=== PATIENT | female | born 1970 | race Caucasian/White ===

== ENCOUNTER → 2016-10-30 | Outpatient (CLI) | payer BC ==
--- NOTE | 2016-10-30 08:53 | REPMRS ---
Patient History The patient states she had a clinical breast exam in 11/03 Family history of colorectal cancer in paternal grandmother at age 50 or over and breast cancer in maternal grandmother at age 39. Reductions of both breasts, 2011. Taking hormonal contraceptives for 23 years. Digital Woman Screen Mammo: October 30, 2016 - Exam #: [id number] Bilateral CC and MLO view(s) were taken. Technologist: Syl Villegas, Technologist Prior study comparison: October 29, 2015, digital woman screen mammo performed at [facility]. October 30, 2014, digital woman screen mammo performed at [facility] [employer] [facility]. October 31, 2013, digital woman screen mammo performed at [facility] [employer] [facility]. FINDINGS: There are scattered fibroglandular densities. There has been no change in the appearance of the mammogram from the prior studies. There is a mild amount of scattered fibroglandular density which is fairly symmetric. There is no interval development of dominant mass, architectural distortion, or clustered microcalcification suggestive of malignancy. ASSESSMENT: BI-RADS/ACR category 1 mammogram. Negative. Recommendation Routine screening mammogram in 1 year (for women over age 40). This mammogram was interpreted with the aid of an FDA-approved computer-aided dectection system. Electronically Signed By: Joe Centeno MD 10/30/16 0853
== END ==
LOC: M WHC 08:09
PROVIDERS: ATTEND Nurse Practitioner Family
DX: Z12.31 Encounter for screening mammogram for malignant neoplasm of breast (principal); Z80.3 Family history of malignant neoplasm of breast

== ENCOUNTER → 2017-10-31 | Outpatient (REF) | payer BC | LOC: M SFHCWAGY 08:28 | DX: Z12.4 Encounter for screening for malignant neoplasm of cervix (principal) | CPT/HCPCS: G0123 ==

== ENCOUNTER → 2017-10-31 | Outpatient (CLI) | payer BC | LOC: M WHC 08:25 | DX: Z12.31 Encounter for screening mammogram for malignant neoplasm of breast (principal) ==

== ENCOUNTER → 2018-11-01 | Outpatient (CLI) | payer BC ==
--- NOTE | 2018-11-01 12:52 | REPMRS ---
Patient History The patient states she had a clinical breast exam in 10/2018. Family history of colorectal cancer at age 50 or over in paternal grandmother, breast cancer at age 39 in maternal grandmother. Reductions of both breasts, 2010. Taking hormonal contraceptives for 25 years. Digital Woman Screen Mammo: November 01, 2018 - Exam #: [id number] Bilateral CC and MLO view(s) were taken. Technologist: Corrine Childers, Technologist Prior study comparison: October 31, 2017, digital woman screen mammo performed at [facility]. October 30, 2016, digital woman screen mammo performed at [facility]. FINDINGS: There are scattered fibroglandular densities. There has been no change in the appearance of the mammogram from the prior studies. There is a mild amount of residual fibroglandular tissue which is fairly symmetric. There is no interval development of dominant mass, architectural distortion, or clustered microcalcification suggestive of malignancy. Post reduction mammaplasty changes are stable. Large coarse benign appearing calcification is present on the left, stable. There are scattered, small, benign calcifications of doubtful clinical significance. Scattered lymph nodes are seen in the right axilla. 3-D tomosynthesis shows no additional findings. No significant changes when compared with prior studies. Assessment: BI-RADS/ACR category 2 mammogram. Benign Findings. Recommendation Routine screening mammogram in 1 year (for women over age 40). This mammogram was interpreted with the aid of an FDA-approved computer-aided dectection system. A. Negative x-ray reports should not delay biopsy if a dominant or clinically suspicious mass is present. B. Four to eight percent of cancers are not identified by mammography. C. Adenosis and dense breast may obscure an underlying neoplasm. Electronically Signed By: Matthew Price MD 11/01/18 [id number]
== END ==
LOC: M WHC 08:52
PROVIDERS: ATTEND Nurse Practitioner Family
DX: Z12.31 Encounter for screening mammogram for malignant neoplasm of breast (principal); Z80.0 Family history of malignant neoplasm of digestive organs

== ENCOUNTER → 2018-11-01 | Outpatient (REF) | payer BC | LOC: M SFHCWAGY 09:14 | PROVIDERS: ATTEND Nurse Practitioner Family | DX: N91.2 Amenorrhea, unspecified (principal) ==

== ENCOUNTER → 2019-11-04 | Outpatient (CLI) | payer BC ==
--- NOTE | 2019-11-04 16:58 | REPMRS ---
Patient History The patient states she had a clinical breast exam in October 2019. Family history of colorectal cancer at age 50 or over in paternal grandmother, breast cancer at age 39 in maternal grandmother. Reductions of both breasts, 2011. Taking hormonal contraceptives for 25 years. 3D TOMOSYNTHESIS WAS PERFORMED. [facility] 17.1%. Digital Woman Screen Mammo: November 04, 2019 - Exam #: [id number] Bilateral CC and MLO view(s) were taken. Technologist: RT David Prior study comparison: November 01, 2018, bilateral digital woman screen mammo performed at [facility]. October 31, 2017, digital woman screen mammo performed at [facility]. FINDINGS: The breast tissue is heterogeneously dense. This may lower the sensitivity of mammography. There has been no change in the appearance of the mammogram from the prior studies. There is a moderate amount of residual fibroglandular tissue which is fairly symmetric. There is no interval development of dominant mass, areas of architectural distortion, or clustered microcalcification typical of malignancy. Assessment: BI-RADS/ACR category 1 mammogram. Negative Mammogram. Recommendation Routine screening mammogram in 1 year (for women over age 40). This mammogram was interpreted with the aid of an FDA-approved computer-aided dectection system. Electronically Signed By: Shaggy Alejandro MD 11/04/19 [id number]
== END ==
LOC: M WHC 15:10
PROVIDERS: ATTEND Nurse Practitioner Family
DX: Z12.31 Encounter for screening mammogram for malignant neoplasm of breast (principal)

== ENCOUNTER → 2020-06-30 | Outpatient (CLI) | payer BC ==
[~2020-06-30] MED LIST: PROHANCE 279.3MG/ML 15ML VIAL As Ordered ONE; PROHANCE 279.3MG/ML 5ML VIAL As Ordered ONE
--- NOTE | 2020-07-01 08:21 | REP ---
INDICATION: HIGH RISK FOR BREAST CA. COMPARISON: Comparison mammography November 04, 2019. TECHNIQUE: Three Evelia MRI imaging was performed with a dedicated breast coil. Axial, coronal, and sagittal T1 and T2 weighted scans were obtained with and without fat saturation in the usual fashion. The study includes dynamically acquired post gadolinium-enhanced imaging with image subtraction. Maximum intensity projection and multi planar reformation imaging is included as well. This study is interpreted with the aid of [employer], an FDA approved computer aided detection (CAD) software program, on a dedicated breast MRI workstation. The gadolinium enhancement dose is 17 mL of intravenous ProHance. FINDINGS: There is a focus of micrometallic artifact in the areolar border laterally on the right. There are tiny densities visible in this region on the mammogram. This is not considered suspicious. The patient is status post bilateral breast reduction. This is considered to be postsurgical artifact. There are other linearly aligned micrometallic artifacts in the inferior aspect of each breast. There is scattered fibroglandular elements in a symmetric pattern. T2 weighted scans show no evidence to suggest axillary or internal mammary lymphadenopathy. No significant breast cystic changes are seen. High-resolution T1 and T2 weighted tip pre and postcontrast images show no suspicious morphologic abnormality in either breast. Dynamically acquired sequential postcontrast images show no suspicious area of enhancement and washout on either side to suggest a malignant focus. Subtraction images show no additional abnormality. IMPRESSION: BI-RADS category 2 benign findings. Patient has whose lifetime breast cancer risk assessment is greater than 20% merit enhanced screening with annual bilateral breast MRI scanning in addition to annual screening mammography. <Electronically signed by Joe Centeno > 07/01/20 [id number]
== END ==
LOC: M RAD 14:52
PROVIDERS: ATTEND Nurse Practitioner Family
DX: Z91.89 Other specified personal risk factors, not elsewhere classified (principal)
CPT/HCPCS: A9576; C8908

== ENCOUNTER → 2020-11-16 | Outpatient (REF) | payer BC | LOC: M SFHCWAGY 13:44 | PROVIDERS: ATTEND Nurse Practitioner Family | DX: Z01.419 Encounter for gynecological examination (general) (routine) without abnormal findings (principal) ==

== ENCOUNTER → 2020-11-16 | Outpatient (CLI) | payer BC ==
--- NOTE | 2020-11-16 10:08 | REPMRS ---
Patient History The patient states she had a clinical breast exam in 10/2020. Family history of colorectal cancer at age 50 or over in paternal grandmother, breast cancer at age 39 in maternal grandmother. Reductions of both breasts, 2010. Taking hormonal contraceptives for 26 years. Digital Woman Screen Mammo: November 16, 2020 - Exam #: [id number] Bilateral CC and MLO view(s) were taken. Technologist: Jemima Williamson, Technologist Prior study comparison: November 04, 2019, bilateral digital woman screen mammo performed at [facility]. November 01, 2018, bilateral digital woman screen mammo performed at [facility]. October 31, 2017, digital woman screen mammo performed at [facility]. FINDINGS: There are scattered fibroglandular densities. The Volpara volumetric breast density category is:B. There is a large grouping] of benign macrocalcifications in the upper-outer quadrant of the left breast consistent with fat necrosis unchanged from multiple prior studies. There has been no change in the appearance of the mammogram from the prior studies. There is a mild amount of scattered fibroglandular density which is fairly symmetric. There is no interval development of dominant mass, architectural distortion, or grouped microcalcification suggestive of malignancy. 3-D tomosynthesis shows no additional findings. Assessment: BI-RADS/ACR category 2 mammogram. Benign Findings. Recommendation Routine screening mammogram of both breasts in 1 year (for women over age 40). This patient's [facility] Lifetime Breast Cancer Risk is estimated at 16.8 %. This mammogram was interpreted with the aid of an FDA-approved computer-aided dectection system. Electronically Signed By: Joe Centeno MD 11/16/20 6011
== END ==
LOC: M WHC 08:40
PROVIDERS: ATTEND Nurse Practitioner Family
DX: Z12.31 Encounter for screening mammogram for malignant neoplasm of breast (principal)

== ENCOUNTER → 2021-12-28 | Outpatient (CLI) | payer BC | LOC: M WHC 13:57 | PROVIDERS: ATTEND Obstetrics & Gynecology | DX: Z12.31 Encounter for screening mammogram for malignant neoplasm of breast (principal) ==

== ENCOUNTER → 2023-01-08 | Outpatient (CLI) | payer BC | LOC: M PLALAB 15:26 | PROVIDERS: ATTEND Nurse Practitioner Family | DX: Z12.4 Encounter for screening for malignant neoplasm of cervix (principal); Z80.3 Family history of malignant neoplasm of breast | CPT/HCPCS: 36415; 87624; G0123 ==

== ENCOUNTER → 2023-01-08 | Outpatient (CLI) | payer BC | LOC: M WHC 13:58 | PROVIDERS: ATTEND Nurse Practitioner Family | DX: Z12.31 Encounter for screening mammogram for malignant neoplasm of breast (principal) ==

== ENCOUNTER → 2024-01-15 | Outpatient (CLI) | payer OTHER, SELFPAY | LOC: M WHC 08:39 | PROVIDERS: ATTEND Nurse Practitioner Family | DX: Z12.31 Encounter for screening mammogram for malignant neoplasm of breast (principal) ==

== ENCOUNTER → 2024-02-13 | Outpatient (CLI) | payer OTHER | LOC: M WHC 13:19 | PROVIDERS: ATTEND Nurse Practitioner Family | DX: Z12.31 Encounter for screening mammogram for malignant neoplasm of breast (principal) | CPT/HCPCS: 77065; G0279 ==